=== PATIENT | male | born 1980 | race Hispanic/Latino ===

== ENCOUNTER 2018-02-23 06:52 | Emergency (ER) | payer OTHER ==
--- NOTE | 2018-02-23 07:28 | ED PDOC ---
HPI: Male Pain Time Seen by Provider: 02/23/18 07:11 Chief Complaint (Nursing): Male Genitourinary Chief Complaint (Provider): Urinary retention History Per: Patient History/Exam Limitations: no limitations Onset/Duration Of Symptoms: Hrs (12am) Current Symptoms Are (Timing): Still Present Associated Symptoms: Nausea, Urinary Symptoms (urinary retention). denies: Fever, Chills, Vomiting, Diarrhea Additional Complaint(s): Wade Kearns is a 37 year old male, with a past medical history of cystectomy and Crohn's disease, who presents to the emergency department for urinary retention onset since 12:00am today. He is complaining of mild hematuria, and full bladder secondary to pain. 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 Patient reports having a cystectomy every 6 months. He states x3 months ago he was found to have something in his bladder, thus he was seen yesterday by urologist for biopsy and was discharged last night. He was able to urinate x3 times up until midnight. Patient states this is the first time having retention, he has been eating and drinking normally. He denies any fever, chills, vomiting, diarrhea and shortness of breath. No further medical complaints. Urologist: Dr. Simon at [facility] PMD: Dr. Amado Vidal Past Medical History Reviewed: Historical Data, Nursing Documentation, Vital Signs Vital Signs: Last Vital Signs Temp 97.3 F L 02/23/18 06:59 Pulse 72 02/23/18 06:59 Resp BP 124/75 02/23/18 06:59 Pulse Ox 100 02/23/18 06:59 - Medical History PMH: Crohn's Disease - Surgical History Other surgeries: Cystectomy - Family History Family History: States: No Known Family Hx - Home Medications Home Medications: Ambulatory Orders Medication Instructions Recorded Ciprofloxacin HCl [Cipro] 250 mg PO BID #14 tab 02/23/18 Tamsulosin [Flomax] 0.4 mg PO DAILY #21 cap 02/23/18 - Allergies Allergies/Adverse Reactions: Allergies Allergy/AdvReac Type Severity Reaction Status Date / Time No Known Allergies Allergy Verified 02/23/18 07:07 Review of Systems ROS Statement: Except As Marked, All Systems Reviewed And Found Negative Constitutional: Negative for: Fever, Chills Gastrointestinal: Negative for: Vomiting, Diarrhea Genitourinary Male: Positive for: Hematuria (mild), Other (urinary retention) Physical Exam - Reviewed Nursing Documentation Reviewed: Yes Vital Signs Reviewed: Yes - Physical Exam Appears: Positive for: Non-toxic, No Acute Distress Head Exam: Positive for: ATRAUMATIC, NORMOCEPHALIC Skin: Positive for: Normal Color, Warm, Dry Eye Exam: Positive for: Normal appearance Neck: Positive for: Painless ROM Cardiovascular/Chest: Positive for: Regular Rate, Rhythm. Negative for: Murmur Respiratory: Positive for: Normal Breath Sounds. Negative for: Respiratory Distress Gastrointestinal/Abdominal: Positive for: Tenderness (suprapubic and lower umbilical) Back: Positive for: Normal Inspection. Negative for: L CVA Tenderness, R CVA Tenderness, Vertebral Tenderness Extremity: Positive for: Normal ROM (all extremities). Negative for: Deformity , Swelling Neurologic/Psych: Positive for: Alert, Oriented. Negative for: Motor/Sensory Deficits - ECG O2 Sat by Pulse Oximetry: 100 (RA) Pulse Ox Interpretation: Normal Medical Decision Making Medical Decision Making: Initial Impression: Urinary retention Initial Plan: --Urine dipstick --Culture urine --Vargas --Urinalysis --Reevaluation Scribe Attestation: Documented by Madhu Sanchez, acting as a scribe for Nanette Lopez MD Provider Scribe Attestation: All medical record entries made by the Scribe were at my direction and personally dictated by me. I have reviewed the chart and agree that the record accurately reflects my personal performance of the history, physical exam, medical decision making, and the department course for this patient. I have also personally directed, reviewed, and agree with the discharge instructions and disposition. patient's catheter flowing freely into leg bag. Will d/c on oral antibiotics and flomax Disposition - Clinical Impression Clinical Impression: Urinary retention - Patient ED Disposition Is Patient to be Admitted: No Doctor Will See Patient In The: Office Counseled Patient/Family Regarding: Diagnosis, Need For Followup, Rx Given - Disposition Referrals: [facility] [Outside] Disposition: Routine/Home Disposition Time: 10:45 Condition: STABLE Additional Instructions: continue your other medications as prescribed and as needed. Prescriptions: Ciprofloxacin HCl [Cipro] 250 mg PO BID #14 tab Tamsulosin [Flomax] 0.4 mg PO DAILY #21 cap Instructions: Urinary Retention Forms: [facility] Zamarripa (Slovak), [facility] ED School/Work Excuse - POA Present On Arrival: None
[2018-02-23 08:15] LABS: URINE BILIRUBIN NEGATIVE (NEGATIVE); URINE BLOOD MODERATE (NEGATIVE); URINE CLARITY SLIGHTY-CLOUDY (Clear); URINE COLOR AMBER (YELLOW); URINE GLUCOSE (UA) NEG (Normal); URINE LEUKOCYTE ESTERASE NEG Leu/uL (Negative); URINE PROTEIN 30 mg/dL (NEGATIVE)
[2018-02-23 09:59] VITALS: BP 128/77; PULSE 66; RESP 18; TEMP 97.5
[2018-02-23 10:46] VITALS: O2SAT 100
== END 2018-02-23 10:50 | disposition home or self-care (01) ==
LOC: H.ER 06:52
DX: R33.9 Retention of urine, unspecified (principal); K50.90 Crohn's disease, unspecified, without complications

== ENCOUNTER 2018-02-26 14:26 | Emergency (ER) | payer OTHER ==
--- NOTE | 2018-02-26 14:53 | ED PDOC ---
HPI: Male Pain Time Seen by Provider: 02/26/18 14:38 Chief Complaint (Nursing): Male Genitourinary Chief Complaint (Provider): Urinary retention History Per: Patient, Family History/Exam Limitations: no limitations Onset/Duration Of Symptoms: Days (3hrs) Current Symptoms Are (Timing): Still Present Additional Complaint(s): Pt. with cystoscopy on 02/21/18. He urinated after the procedure. Then at night he was not able to and came to the ED for retention and had byers put in and put on antibiotics, flomax. Pt. had byers removed by his urologist Wednesday and he was urinating. Today morning he was not urinating so he came to the ER. Before being seen he urinated well and a blood clot came out. He left as he was feeling much better. For the past 3 hours he has not been able to pee. He feels pain in the bladder area. Has been drinking fluids and eating with no issues. No chest pain, dyspnea, weakness, back pain, headaches, dizziness. Past Medical History Reviewed: Historical Data, Nursing Documentation, Vital Signs Vital Signs: Last Vital Signs Temp 97 F L 02/26/18 14:30 Pulse 96 H 02/26/18 14:30 Resp 18 02/26/18 14:30 BP 114/77 02/26/18 14:30 Pulse Ox 100 02/26/18 14:30 - Medical History PMH: Crohn's Disease Denies: Chronic Kidney Disease - Surgical History Other surgeries: cystoscopy for tumor hx - Family History Family History: States: Unknown Family Hx - Living Arrangements Living Arrangements: With Family - Immunization History Hx Tetanus Toxoid Vaccination: No Hx Influenza Vaccination: No Hx Pneumococcal Vaccination: No - Home Medications Home Medications: Ambulatory Orders Medication Instructions Recorded Ciprofloxacin HCl [Cipro] 250 mg PO BID #14 tab 02/23/18 Tamsulosin [Flomax] 0.4 mg PO DAILY #21 cap 02/23/18 - Allergies Allergies/Adverse Reactions: Allergies Allergy/AdvReac Type Severity Reaction Status Date / Time No Known Allergies Allergy Verified 02/23/18 07:07 Review of Systems ROS Statement: Except As Marked, All Systems Reviewed And Found Negative Genitourinary Male: Negative for: Penile Discharge, Penile Pain Physical Exam - Reviewed Nursing Documentation Reviewed: Yes Vital Signs Reviewed: Yes - Physical Exam Appears: Positive for: Non-toxic, No Acute Distress Head Exam: Positive for: ATRAUMATIC, NORMAL INSPECTION, NORMOCEPHALIC Skin: Positive for: Normal Color, Warm, DRY Neck: Positive for: Normal, Painless ROM Cardiovascular/Chest: Positive for: Regular Rate, Rhythm Respiratory: Positive for: CNT, Normal Breath Sounds Gastrointestinal/Abdominal: Positive for: Soft, Tenderness (suprapubic). Negative for: Guarding, Rebound Back: Positive for: Normal Inspection. Negative for: L CVA Tenderness, R CVA Tenderness Neurologic/Psych: Positive for: Alert, Oriented - ECG O2 Sat by Pulse Oximetry: 100 Pulse Ox Interpretation: Normal - Progress ED Course And Treament: 1454: Pt. wants to drink water and try to urinate 1 more time. If no urine, will need a byers. 1541: Byers put in. Good urine production (300 ml). Pt. has cipro, cont. Urine cx from last visit, with no growth. Pt. to have leg bag and fu with urologist. Disposition - Clinical Impression Clinical Impression: Urinary retention - Patient ED Disposition Is Patient to be Admitted: No Counseled Patient/Family Regarding: Diagnosis, Need For Followup - Disposition Referrals: [facility] [Outside] - 02/28/18 Disposition: Routine/Home Disposition Time: 15:45 Condition: STABLE Additional Instructions: See your urologist without fail Wednesday. Return if not better in 3 days. Instructions: Urinary Retention (DC), Byers Catheter, Male Forms: [facility] ([place])
[2018-02-26 16:51] VITALS: BP 126/78; PULSE 78; RESP 19; TEMP 97.6; O2SAT 98
== END 2018-02-26 16:51 | disposition home or self-care (01) ==
LOC: H.ER 14:26
DX: R33.9 Retention of urine, unspecified (principal); K50.90 Crohn's disease, unspecified, without complications